=== PATIENT | male | born 1950 | race Caucasian/White ===

== ENCOUNTER → 2017-04-04 | Outpatient (CLI) | payer MEDICARE ==
--- NOTE | 2017-04-04 17:28 | PCVCIMAG ---
APPROVED REPORT Exam: Stress Echocardiogram Indication: Elevated coronary calcium score >400, HLP, Fam hx CAD Stress Nurse: Brittney Vila RN Status: routine HR: 64 bpm Rhythm: NSR Medical History Cardiac Risk Factors: FHX of CAD Pretest Chest Pain Characteristics: No chest pain Procedure The patient underwent an Exercise Stress Test using the Wali Protocol. Blood pressure, heart rate, and EKG were monitored. An Echocardiogram was performed by cooking appliance repair technician in four stages in quad fashion. At peak stress, four selected images were obtained and placed side by side with resting images for comparison. Stress Test Details Stress Test: Exercise stress testing was performed using a Wali protocol. HR Resting HR: 64 bpmMax Heart Rate (APMHR): 154 bpm Max HR Achieved: 150 bpmTarget HR (85% APMHR): 130 bpm % of APMHR: 97 Recovery HR: 80 bpm HR response to stress: Normal HR response to stress BP Resting BP: 110/70 mmHg Max BP: 162/70 mmHg Recovery BP: 158/66 mmHg ECG Resting ECG: Sinus Rhythm Stress ECG: Sinus Rhythm ST Change: Normal Arrhythmia: None Recovery ECG: Sinus Rhythm Clinical Reason for Termination: Maximal effort Exercise duration: 14 min 5 sec Exercise capacity: 17.2 METs Overall Exercise Capacity for Age: Excellent Pre-Stress Echo The resting Echocardiogram showed normal left ventricular contractility with an estimated Ejection Fraction of about >55%. Normal wall motion in all segments on baseline images. Post-Stress Echo The stress Echocardiogram showed normal left ventricular contractility with an estimated Ejection Fraction of about 65%. Normal augmentation of wall motion in all segments on post stress images. Clinical No clinical or ECG evidence for ischemia. Conclusion Clinical Response: Non-ischemic Exercise Capacity: Superior Stress ECG Response: Non-ischemic Stress Echo Images: Non-ischemic
== END | disposition home or self-care (01) ==
LOC: PCVCIMAG 09:45
PROVIDERS: ATTEND Internal Medicine Cardiovascular Disease
DX: I25.10 Atherosclerotic heart disease of native coronary artery without angina pectoris (principal)
CPT/HCPCS: 93325; 93351

== ENCOUNTER → 2019-03-28 | Outpatient (CLI) | payer MEDICARE ==
--- NOTE | 2019-04-03 13:49 | PCVCIMAG ---
APPROVED REPORT Study performed: 03/28/2019 10:59:15 Exam: Stress Echocardiogram Indication: elevated calcium score Patient Location: Echo lab Stress Nurse: Roxane Sparks RN Status: routine Ht: 5 ft 9 in HR: 53 bpm BP: 104/70 mmHg Rhythm: Bradycardia Medical History Exercise History: Physically active Procedure The patient underwent an Exercise Stress Test using the Wali Protocol. Blood pressure, heart rate, and EKG were monitored. An Echocardiogram was performed by bindery technician in four stages in quad fashion. At peak stress, four selected images were obtained and placed side by side with resting images for comparison. Stress Test Details Stress Test: Exercise stress testing was performed using a Wali protocol. HR Resting HR: 53 bpmMax Heart Rate (APMHR): 152 bpm Max HR Achieved: 139 bpmTarget HR (85% APMHR): 129 bpm % of APMHR: 91 Recovery HR: 70 bpm HR response to stress: Normal HR response to stress BP Resting BP: 104/70 mmHg Max BP: 164/78 mmHg Recovery BP: 164/78 mmHg BP response to stress: Normal blood pressure response to stress. ECG Resting ECG: Sinus Rhythm Stress ECG: Sinus Rhythm Recovery ECG: Sinus Rhythm Clinical Reason for Termination: Maximal effort Exercise duration: 14 min 35 sec Highest Stage Achieved: Stage 4: 4.2 mph at 16% grade. Exercise capacity: 17.50 METs Overall Exercise Capacity for Age: Excellent Pre-Stress Echo The resting Echocardiogram showed normal left ventricular contractility with an estimated Ejection Fraction of about 55-60%. Post-Stress Echo The stress Echocardiogram showed normal left ventricular contractility with an estimated Ejection Fraction of about 60-65%. Conclusion Clinical Response: Non-ischemic Exercise Capacity: Superior Stress ECG Response: Non-ischemic Stress Echo Images: Non-ischemic Other Information Study Quality: GoodAdequate
== END | disposition home or self-care (01) ==
LOC: PCVCIMAG 10:40
PROVIDERS: ATTEND Internal Medicine Cardiovascular Disease
DX: R93.1 Abnormal findings on diagnostic imaging of heart and coronary circulation (principal); E78.5 Hyperlipidemia, unspecified; I25.10 Atherosclerotic heart disease of native coronary artery without angina pectoris; R00.1 Bradycardia, unspecified
CPT/HCPCS: 93325; 93351